=== PATIENT | male | born 1945 | race African-American/Black ===

== ENCOUNTER → 2016-12-31 | Outpatient (REF) | payer MEDICARE, MEDICAID | LOC: M LAB REF 14:45 | PROVIDERS: ATTEND Internal Medicine Medical Oncology | DX: D75.9 Disease of blood and blood-forming organs, unspecified (principal) ==

== ENCOUNTER → 2016-12-31 | Outpatient (REF) | payer MEDICARE, MEDICAID ==
[2016-12-31 20:24] LABS: PERCENT SATURATION 14.5 % (19.7-50.0)
== END ==
LOC: M LAB REF 14:45
PROVIDERS: ATTEND Internal Medicine Medical Oncology
DX: D64.9 Anemia, unspecified (principal); D69.6 Thrombocytopenia, unspecified

== ENCOUNTER → 2017-03-02 | Outpatient (REF) | payer MEDICARE, MEDICAID | LOC: M LAB REF 13:15 | PROVIDERS: ATTEND Internal Medicine Medical Oncology | DX: D47.3 Essential (hemorrhagic) thrombocythemia (principal) ==